=== PATIENT | male | born 1975 | race Caucasian/White ===

== ENCOUNTER → 2017-01-19 | Outpatient (CLI) | payer OTHER ==
--- NOTE | 2017-01-19 09:53 | KCIC ---
PROCEDURE Orbits. HISTORY Known metal. MRI today. TECHNIQUE Orbits with upward and downward gaze were obtained. COMPARISON None. FINDINGS No radiopaque foreign body is apparent. IMPRESSION Negative for radiopaque foreign body. Electronically signed by: Tani Go MD (Jan 19, 2017 09:52:07)
--- NOTE | 2017-01-19 15:01 | KCIC ---
PROCEDURE MR of the MR of the left knee HISTORY Acute pain. COMPARISON None Technique: Standard noncontrast images are obtained. FINDINGS Degenerative tear of the medial meniscus. No evidence of lateral meniscal tear. The anterior and posterior cruciate ligaments are intact. Scarring of the proximal medial femoral condyle. Iliotibial band unremarkable. Fibular collateral ligament, biceps femoris tendon and popliteus tendon are intact. Extensor mechanism is intact. No significant joint effusion. Mild chondromalacia at the medial joint compartment. Mild to moderate chondromalacia of the femoral trochlea. No bone lesion or acute fracture. No acute soft tissue injury. No significant Bradley's cyst. There is a complex septated cyst superficial to the medial joint compartment with component both deep and superficial to the superficial layer of the medial collateral ligament. Measures 3 cm long axis. IMPRESSION 1. Medial meniscal tear with adjacent complex parameniscal cyst. 2. 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 Electronically signed by: David Coon MD (Jan 19, 2017 15:00:09)
== END | disposition home or self-care (01) ==
LOC: KCIC 09:26
PROVIDERS: ATTEND Nurse Practitioner Gerontology
DX: S83.242A Other tear of medial meniscus, current injury, left knee, initial encounter (principal); M94.262 Chondromalacia, left knee
CPT/HCPCS: 70030; 73721

== ENCOUNTER 2017-02-09 06:27 | Day surgery (SDC) | payer OTHER ==
[2017-02-09] MEDS ORDERED: CEFAZOLIN 1GM IVPB FOR OMNI 50 ML IV ONE (06:30)
[2017-02-09] MEDS ORDERED: HYDR-2762 PO (06:44)
[2017-02-09] MEDS ORDERED: TRAM200T2 PO (06:45)
[2017-02-09] MEDS ORDERED: AMLO2.5T PO (06:45)
[2017-02-09] MEDS ORDERED: MELO7.5T5 PO (06:46)
[2017-02-09] MEDS ORDERED: LISI10TA2 PO (06:46)
[2017-02-09] MEDS ORDERED: FENTANYL PF 100 MCG/2 ML VIAL. ONE (06:58)
[2017-02-09] MEDS ORDERED: LIDOCAINE 2% 100 MG/5 ML SYRINGE. ONE (06:58)
[2017-02-09] MEDS ORDERED: PROPOFOL 20 ML IV ONE (06:58)
[2017-02-09] MEDS ORDERED: HYDROMORPHONE 2 MG/ML VIAL. IV PRN (07:00)
[2017-02-09] MEDS ORDERED: MORPHINE SULFATE 2 MG/ML DISP.SYRIN. IV PRN (07:00)
[2017-02-09] MEDS ORDERED: LIDOCAINE 1% 1 ML SYRINGE. ID PRN (07:00)
[2017-02-09] MEDS ORDERED: PROCHLORPERAZINE 10 MG/2 ML VIAL. IV PRN (07:00)
[2017-02-09] MEDS ORDERED: FENTANYL PF 100 MCG/2 ML VIAL. IV PRN ×2 (07:00)
[2017-02-09] MEDS ORDERED: IV RINGERS,LACTATED 1000ML 1,000 ML IV SCH (07:00)
[2017-02-09] MEDS ORDERED: ONDANSETRON PF 4 MG/2 ML VIAL. IV PRN (07:00)
[2017-02-09] MEDS ORDERED: BUPIVACAINE MPF 0.5% 30 ML VIAL. ONE (07:07)
[2017-02-09] MEDS ORDERED: LIDOCAINE 1% PF 30 ML VIAL. ONE (07:07)
[2017-02-09] MEDS ORDERED: EPINEPHRINE 30 MG/30 ML VIAL. ONE (07:07)
--- NOTE | 2017-02-09 07:34 | DISCH ---
DISCHARGE INSTRUCTIONS Condition on Discharge Condition on Discharge: Stable Activity After Discharge Activity Instructions for Disc: Other, see below Bathing Instructions: Shower-keep dressing dry Weight Bearing Status after Di: As tolerated Diet after Discharge Diet after Discharge: Regular Wound Incision Care Wound/Incision Care: Ice to area for comfort, Keep wound/cast CDI, Change dressing Contacting the [facility] after DC Call your doctor for: Concerns you may have Follow-Up Follow up with: Ricki/Yenny in 2wks AYLA NORMAN II, MD Feb 09, 2017 07:34
--- NOTE | 2017-02-09 07:35 | PDOC ---
BRIEF OPERATIVE NOTE Date: Feb 09, 2017 Pre-Op Diagnosis L knee MM tear Post-Op Diagnosis same Procedure Performed L knee arthroscopy, PMM Surgeon Ricki Spinning Room Worker Grisel Anesthesiologist Anika Anesthesia Type: General Blood Loss 5mL Complications none AYLA NORMAN II, MD Feb 09, 2017 07:35
[2017-02-09] MEDS ORDERED: DEXAMETHASONE SOD PHOS 20 MG/5 ML VIAL. ONE (07:38)
[2017-02-09] MEDS ORDERED: SEVOFLURANE 16 TO 30 MINUTES. IH ONE (07:38)
[2017-02-09] MEDS ORDERED: ONDANSETRON PF 4 MG/2 ML VIAL. ONE (07:38)
[2017-02-09] MEDS ORDERED: KETOROLAC TROMETHAMINE 30 MG/ML INJ. ONE (08:28)
[2017-02-09] MEDS ORDERED: DOCU-27 PO (08:56)
[2017-02-09] MEDS ORDERED: HYDR-963 PO (08:56)
[2017-02-09] MEDS ORDERED: ONDA4TAB10 PO (08:57)
[2017-02-09] MEDS ORDERED: HYDROCODONE/APAP 10/325 TABLET. PO PRN (09:00)
[2017-02-09 09:53] VITALS: BP 114/70
--- NOTE | 2017-02-09 12:37 | OP ---
DATE OF SURGERY: 02/09/2017 SURGEON: Felipe Norman MD CONTROL ROOM HELPER: None. ANESTHESIA: General. PREOPERATIVE DIAGNOSIS: Left knee medial meniscus tear with parameniscal cyst. POSTOPERATIVE DIAGNOSIS: Left knee medial meniscus tear with parameniscal cyst. PROCEDURE PERFORMED: Left knee arthroscopy with partial medial meniscectomy. COMPLICATIONS: None. TOURNIQUET TIME: 32 minutes. ESTIMATED BLOOD LOSS: 5 mL. FINDINGS: 1. The patient had grade 2-3 changes at his trochlea. 2. Intact cruciate ligaments. 3. Lateral compartment had some softening at the tibial plateau, but otherwise was without pathology. 4. Medial compartment demonstrated complex medial meniscus tear involving the posterior portion of the lateral body of the meniscus. He had softening of his tibial plateau as well. REASON FOR PROCEDURE: This is a very pleasant 41-year-old gentleman with persistent knee pain and a painful bump over his medial compartment. Clinical and radiographic workup were consistent with the above preoperative diagnosis including an MRI. After discussing treatment options and failure of conservative therapy such as intra-articular steroid injection, we had a discussion of risks, benefits and alternatives of the above surgery and he elected to proceed. DESCRIPTION OF PROCEDURE: The patient was greeted in the preoperative area by myself. Correct extremity was marked and verified. He was taken to the operative suite and antibiotics were started en route. Once in the OR, he was transferred gently supine to the OR table and secured to the bed with all pressure points padded. We placed a nonsterile tourniquet to his left thigh and then secured him to the bed. He had a bolster placed at his lateral left hip and a bar secured to the bed to hold his foot in place to maintain his knee in 90 degrees of flexion. We then proceeded to prep and drape left lower extremity in usual sterile fashion and then conducted a standard preoperative timeout. I then exsanguinated the extremity with an Esmarch and insufflated the tourniquet to 250 mmHg. I then palpated, marked a surface anatomy and made my standard anterolateral arthroscopic portal and introduced a blunt arthroscopic trocar followed by the camera in the suprapatellar pouch. I then conducted my diagnostic arthroscopy with the above noted findings. I then used a spinal needle to localize the anteromedial portal and incised the skin in accordance with this. I used a hemostat to dilate the hole and then introduced my probe and inspected the medial meniscus tear further. Given the horizontal and complex nature of the tear with a small undersurface component at the body, I did not think this was amenable to repair. The majority of the tear involved the inner portion. Therefore, using a combination of shaver and biter, I trimmed back the meniscus to a stable rim. After this, I used a spinal needle to decompress the cyst. I then introduced the camera and shaver into the suprapatellar pouch and performed repeated aspiration maneuvers through the shaver and I made sure I had removed all loose bodies. I then removed all excess arthroscopic fluid and the arthroscopic instrumentation. I then closed the skin with simple interrupted 3-0 nylon. The patient tolerated surgery well. No complications. At the conclusion of surgery, he was awakened from anesthesia, transferred gently supine to the recovery room cart and taken to PACU in stable and extubated condition. Postop plan is to weightbear as tolerated. He will follow up with me in 2 weeks, sooner should problems arise. FELIPE NORMAN MD DR: ALEXSANDRA/neal JOB#: [id number] / [id number] RYAN
== END 2017-02-09 10:09 | disposition home or self-care (01) ==
LOC: SURG 06:27
PROVIDERS: ATTEND Orthopaedic Surgery Sports Medicine
DX: S83.232A Complex tear of medial meniscus, current injury, left knee, initial encounter (principal); M23.004 Cystic meniscus, unspecified medial meniscus, left knee; I10 Essential (primary) hypertension; E66.9 Obesity, unspecified; X58.XXXA Exposure to other specified factors, initial encounter; Y93.9 Activity, unspecified; Y92.9 Unspecified place or not applicable; Y99.9 Unspecified external cause status
CPT/HCPCS: 29881; C1782; J0171; J0690; J1100; J1885; J2405; J2704; J3010; J3490

== ENCOUNTER → 2019-08-06 | Outpatient (CLI) | payer OTHER ==
[~2019-08-06] MED LIST: AMLO2.5T5 PO; DOCU-109 PO; HYDR-2765 PO; HYDR-3135 PO; LISI10TA2 PO; MELO7.5T5 PO; ONDA4TAB10 PO; TRAM200T34 PO; ZOLPIDEM 5 MG TABLET. PO ONE
--- NOTE | 2019-08-08 13:06 | SLEEP ---
DATE OF STUDY: 08/06/2019 SLEEP STUDY ATTENDING PHYSICIAN: Reno Paz MD INDICATIONS: The patient is a 44-year-old, who weighs 280 pounds with a BMI of 40. The patient's Dayton score was 6. The patient underwent diagnostic sleep study performed at [facility]. FINDINGS: During the night study, the patient spent 437 minutes in bed and slept for 413 minutes with an excellent sleep efficiency of 94%. Sleep latency was 9 minutes with a REM latency of 409 minutes. Sleep architecture showed normal stage 1 and stage 2 sleep, absent slow wave, and reduced REM sleep, which was only 4% of the total sleep time. During the night study, the patient had 24 obstructive apneas, 1 mixed apnea, no central apneas, and 100 hypopneas. The patient's apnea-hypopnea index was 18 per hour with a supine index of 20 per hour and a REM index of 50 per hour. Nocturnal oximetry study revealed mean oxygen saturation in the high 80s with the lowest of 79%. No clinically significant periodic limb movements observed. EKG monitoring revealed an average heart rate of 87 beats per minute. No sustained arrhythmias observed. Due to low apnea-hypopnea index, the patient did not meet the split night criteria for CPAP initiation. IMPRESSION: 1. Moderate sleep apnea-hypopnea syndrome with worsening during rapid eye movement sleep; total apnea-hypopnea index 18 per hour with a rapid eye movement apnea-hypopnea index of 50 per hour. 2. Nocturnal hypoxia secondary to obstructive sleep apnea. 3. No clinically significant periodic limb movements. RECOMMENDATIONS: 1. The patient should return to the sleep lab for CPAP titration study. 2. Once optimum CPAP pressure is achieved, then follow up in 4-6 weeks to assess compliance with CPAP and to document clinical improvement. 3. Weight loss is strongly advised. 4. Avoid WAX POT T[employer]ER depressants. 5. Cautioned regarding driving until symptoms of sleep apnea resolve with the use of CPAP. LULÚ CARRANZA MD DR: ELISA/neal JOB#: [id number] / [id number] [facility] RENO PAZ MD
== END | disposition home or self-care (01) ==
LOC: SLPLAB 19:01
PROVIDERS: ATTEND Family Medicine
DX: G47.33 Obstructive sleep apnea (adult) (pediatric) (principal); G47.34 Idiopathic sleep related nonobstructive alveolar hypoventilation
CPT/HCPCS: 95810

== ENCOUNTER → 2019-08-07 | Outpatient (CLI) | payer OTHER ==
[~2019-08-07] MED LIST changes: -ZOLPIDEM 5 MG TABLET. PO ONE
[2019-08-07 07:36] LABS: BASO # 0.1 x10^3/uL (0.0-0.2); BASO % 1 % (0-3); EOS # 0.1 x10^3/uL (0.0-0.7); EOS % 2 % (0-3); HEMATOCRIT 46.1 % (39.0-53.0); HEMOGLOBIN 15.6 g/dL (13.0-17.5); LYMPH # 2.1 x10^3/uL (1.0-4.8); LYMPH % 31 % (24-48); MEAN CORPUSCULAR HEMOGLOBIN 29 pg (25-35); MEAN CORPUSCULAR HGB CONC 34 g/dL (31-37); MEAN CORPUSCULAR VOLUME 84 fL (79-100); MONO # 0.9 x10^3/uL (0.0-1.1); MONO % 13 % (0-9); NEUT # 3.6 x10^3/uL (1.8-7.7); NEUT % 53 % (31-73); PLATELET COUNT 248 x10^3/uL (140-400); RED BLOOD COUNT 5.46 x10^6/uL (4.30-5.70); RED CELL DISTRIBUTION WIDTH 14.2 % (11.5-14.5); WHITE BLOOD COUNT 6.7 x10^3/uL (4.0-11.0)
[2019-08-07 07:57] LABS: ALBUMIN 3.9 g/dL (3.4-5.0); CALCIUM 9.2 mg/dL (8.5-10.1); CREATININE 1.1 mg/dL (0.7-1.3); GFR 72.7; POTASSIUM 4.2 mmol/L (3.5-5.1); TOTAL BILIRUBIN 0.5 mg/dL (0.2-1.0); TOTAL PROTEIN 7.7 g/dL (6.4-8.2)
[2019-08-07 07:58] LABS: CHOLESTEROL/HDL RATIO 6.4
== END | disposition home or self-care (01) ==
LOC: LAB 06:53
PROVIDERS: ATTEND Family Medicine
DX: I10 Essential (primary) hypertension (principal)
CPT/HCPCS: 36415; 80053; 80061; 85025

== ENCOUNTER → 2019-08-27 | Outpatient (CLI) | payer OTHER ==
[~2019-08-27] MED LIST changes: +ZOLPIDEM 5 MG TABLET. PO ONE
--- NOTE | 2019-08-30 10:51 | SLEEP ---
DATE OF STUDY: 08/27/2019 SLEEP STUDY ATTENDING PHYSICIAN: Reno Paz MD HISTORY: The patient is a 44-year-old who weighs 270 pounds with a BMI of 39. The patient's Emmet score was 7. The patient was referred for CPAP titration study, performed at [facility]. During the night study, the patient spent 390 minutes in bed and slept for 320 minutes with a sleep efficiency of 82%. Sleep latency was 51 minutes with a REM latency of 97 minutes. Overall, sleep architecture showed normal stage 1 sleep, increased stage 2 sleep, normal slow wave and reduced REM sleep. EKG monitoring revealed a mean heart rate of 76 beats per minute, no sustained arrhythmias observed. No clinically significant PLM seen. The patient was started on CPAP at 7 cm water and titrated up to 11 cm water. At the final pressure, the patient slept for 211 minutes. The patient had supine as well as REM sleep. The patient's AHI was reduced to 1 per hour and oxygen saturation remained above 90%. The patient used medium size nasal pillows. IMPRESSION: 1. Sleep apnea diagnosed previously. 2. No clinically significant PLM. RECOMMENDATIONS: 1. CPAP at 11 cm water completely eliminated the patient's sleep apnea and should be used on a nightly basis. 2. Follow up in 4-6 weeks to assess compliance with CPAP and to document clinical improvement. 3. Weight loss is strongly advised. 4. 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 5. Cautioned regarding driving until symptoms of sleep apnea resolved with the use of CPAP. LULÚ CARRANZA MD DR: ELISA/neal JOB#: [id number] / [id number] [facility] RENO PAZ MD
== END | disposition home or self-care (01) ==
LOC: RT 19:15
PROVIDERS: ATTEND Family Medicine
DX: G47.33 Obstructive sleep apnea (adult) (pediatric) (principal)
CPT/HCPCS: 95811